=== PATIENT | male | born 1965 | race African-American/Black ===

== ENCOUNTER 2016-12-25 18:31 | Emergency (ER) | payer MEDICAID, OTHER ==
[~2016-12-25] VITALS: Ht 165.1 cm; Wt 67.1 kg
[2016-12-25 19:04] VITALS: BP 138/100
--- NOTE | 2016-12-25 19:20 | Emergency Room Report ---
History of Present Illness General Chief Complaint: Vomiting Source: Patient, Caregiver Present Illness HPI Patient is a 51-year-old male brought in by caregiver for increased vomiting. Patient had gradual onset of symptoms. Patient reportedly had one or 2 episodes of diarrhea. Patient had prior history of psychiatric disease and was on Depakote. The patient is normally ambulatory. Patient had decreased feeding as well as decreased food intake. Allergies: Coded Allergies: No Known Allergies (Unverified , 12/25/16) Patient History Past Medical History: see triage record Past Surgical History: unable to obtain Reviewed Nursing Documentation: PMH: Agreed, PSxH: Agreed Nursing Documentation-PMH Past Medical History: No History, Except For History Of Psychiatric Problem: Yes Review of Systems All Other Systems: negative except mentioned in HPI Physical Exam Vital Signs Date Time Temp Pulse Resp B/P Pulse Ox O2 Delivery O2 Flow Rate FiO2 12/25/16 18:51 98.2 112 18 138/100 Sp02 EP Interpretation: reviewed, normal General Appearance: alert, mild distress Head: atraumatic ENT: normal ENT inspection, hearing grossly normal, other - dry mucous membranes Neck: normal inspection, full range of motion, supple, no bony tend Respiratory: normal inspection, lungs clear, normal breath sounds, no respiratory distress, no retraction, no wheezing Cardiovascular #1: regular rate, rhythm, no edema Gastrointestinal: normal inspection, normal bowel sounds, non tender, soft, no guarding, no hernia Genitourinary: no CVA tenderness Musculoskeletal: normal inspection, back normal, normal range of motion Neurologic: responsive, motor weakness - generalized Psychiatric: normal inspection, judgement/insight normal, mood/affect normal Skin: normal inspection, normal color, no rash Medical Decision Making Diagnostic Impression: Primary Impression: Dehydration Additional Impressions: Valproic acid toxicity Vomiting ER Course Patient presented for abdominal pain. Differential diagnoses included ischemic bowel, appendicitis, perforated viscus, abdominal aortic aneurysm, inferior myocardial infarction, viral gastroenteritis Because of complexity of patient's case laboratory testing and imaging studies were ordered. Patient was started on IV fluids. Patient was given IV antiemetics.Patient was noted to have CT imaging without evident bowel obstruction or evidence of appendicitis. Laboratory testing showed elevated white blood count. Depakote level is also noted be elevated. Patient was discussed with Dr. Ray agreed to accept the patient in transfer Laboratory Tests Test 12/25/16 19:18 12/25/16 20:30 White Blood Count 12.3 K/UL (4.8-10.8) H Red Blood Count 4.44 M/UL (4.70-6.10) L Hemoglobin 11.7 G/DL (14.2-18.0) L Hematocrit 36.6 % (42.0-52.0) L Mean Corpuscular Volume 82 FL (80-99) Mean Corpuscular Hemoglobin 26.3 PG (27.0-31.0) L Mean Corpuscular Hemoglobin Concent 31.9 G/DL (32.0-36.0) L Red Cell Distribution Width 14.5 % (11.6-14.8) Platelet Count 166 K/UL (150-450) Mean Platelet Volume 8.4 FL (6.5-10.1) Neutrophils (%) (Auto) 76.0 % (45.0-75.0) H Lymphocytes (%) (Auto) 11.0 % (20.0-45.0) L Monocytes (%) (Auto) 12.0 % (1.0-10.0) H Eosinophils (%) (Auto) 0.0 % (0.0-3.0) Basophils (%) (Auto) 1.0 % (0.0-2.0) Sodium Level 133 mEQ/L (135-145) L Potassium Level 4.0 mEQ/L (3.4-4.9) Chloride Level 90 mEQ/L (98-107) L Carbon Dioxide Level 23 mEQ/L (20-30) Anion Gap 20 (5-15) H Blood Urea Nitrogen 20 mg/dL (7-23) Creatinine 0.9 mg/dL (0.7-1.2) Estimate Glomerular Filtration Rate > 60 mL/min (>60) Glucose Level 120 mg/dL (74-106) H Calcium Level 9.4 mg/dL (8.6-10.2) Total Bilirubin 0.3 mg/dL (0.0-1.2) Aspartate Amino Transferase (AST) 20 U/L (5-40) Alanine Aminotransferase (ALT) 11 U/L (3-41) Alkaline Phosphatase 67 U/L (40-129) Troponin I < 0.30 ng/mL (<=0.30) Total Protein 8.4 g/dL (6.6-8.7) Albumin 4.3 g/dL (3.5-5.2) Globulin 4.1 g/dL Albumin/Globulin Ratio 1.0 (1.0-2.7) Lipase 14 U/L (< 60) Valproic Acid Level 131 ug/mL (50-100) *H Urine Color Pale yellow Urine Appearance Slightly cloudy Urine pH 6 (4.5-8.0) Urine Specific [place] 1.020 (1.005-1.035) Urine Protein 2+ (NEGATIVE) H Urine Glucose (UA) Negative (NEGATIVE) Urine Ketones Negative (NEGATIVE) Urine Occult Blood 5+ (NEGATIVE) H Urine Nitrite Negative (NEGATIVE) Urine Bilirubin Negative (NEGATIVE) Urine Urobilinogen Normal MG/DL (0.0-1.0) Urine Leukocyte Esterase Negative (NEGATIVE) Urine RBC 60-80 /HPF (0 - 0) H Urine WBC 0 /HPF (0 - 0) Urine Squamous Epithelial Cells None /LPF (NONE/OCC) Urine Bacteria Few /HPF (NONE) Last Vital Signs Date Time Temp Pulse Resp B/P Pulse Ox O2 Delivery O2 Flow Rate FiO2 12/25/16 18:51 98.2 112 18 138/100 Status: unchanged Disposition: XFER SHT-TRM HOSP Condition: Serious Referrals: JENNIFER CHADWICK (PCP) Sheldon Denise Dec 25, 2016 19:20
[2016-12-25 19:50] LABS: ALANINE AMINOTRANSFERASE 11 U/L (3-41); ANION GAP 20 (5-15); ASPARTATE AMINO TRANSFERASE 20 U/L (5-40); CALCIUM 9.4 mg/dL (8.6-10.2); CARBON DIOXIDE 23 mEQ/L (20-30); CHLORIDE 90 mEQ/L (98-107); CREATININE 0.9 mg/dL (0.7-1.2); GLOMERULAR FILTRATION RATE > 60 mL/min (>60); HEMOLYSIS 90; LIPASE 14 U/L (< 60); SODIUM 133 mEQ/L (135-145); TOTAL PROTEIN 8.4 g/dL (6.6-8.7); TROPONIN I < 0.30 ng/mL (<=0.30)
[2016-12-25 19:58] LABS: MEAN CORPUSCULAR HEMOGLOBIN 26.3 PG (27.0-31.0); MEAN CORPUSCULAR HGB CONC 31.9 G/DL (32.0-36.0); MEAN CORPUSCULAR VOLUME 82 FL (80-99); MEAN PLATELET VOLUME 8.4 FL (6.5-10.1); PLATELET COUNT 166 K/UL (150-450); RED BLOOD COUNT 4.44 M/UL (4.70-6.10); RED CELL DISTRIBUTION WIDTH 14.5 % (11.6-14.8); WHITE BLOOD COUNT 12.3 K/UL (4.8-10.8)
[2016-12-25 20:07] LABS: VALPROIC ACID 131 ug/mL (50-100)
[2016-12-25 20:50] LABS: KETONES,URINE NEGATIVE (NEGATIVE); LEUKOCYTE ESTERASE ,URINE NEGATIVE (NEGATIVE); NITRITE,URINE NEGATIVE (NEGATIVE); PH,URINE 6 (4.5-8.0); PROTEIN,URINE 2+ (NEGATIVE); UROBILINOGEN,URINE NORMAL MG/DL (0.0-1.0)
[2016-12-25 20:57] LABS: APPEARANCE,URINE SLIGHTLY CLOUDY
[2016-12-25 20:58] LABS: BACTERIA,URINE FEW /HPF; RBC,URINE 60-80 /HPF (0 - 0); WBC,URINE 0 /HPF (0 - 0)
[2016-12-25 21:49] VITALS: BP 148/79
[2016-12-25 23:12] VITALS: BP 145/76
[2016-12-25 23:14] VITALS: BP 145/76
--- NOTE | 2016-12-26 09:22 | Diagnostic Imaging Report ---
Indication: Abdominal pain Technique: Continuous helical transaxial imaging of the abdomen and pelvis was obtained from the lung bases to the pubic symphysis during intravenous contrast administration. Coronal 2-D reformats were also obtained. Study obtained in a Siemens sensation [address] Total Dose length Product (DLP): [address] Dose Index Volume (CTDIvol): 12 mGy Comparison: None Findings: Lung bases are essentially clear. There is a small hiatal hernia. The liver appears slightly hypodense. There is a tiny low-density lesion in the left lobe may be a cyst but too small to characterize adequately. No gross abnormalities of the gallbladder identified. Appendix is not seen but there are no secondary signs of appendicitis appreciated. The kidneys, pancreas, spleen appear unremarkable. No free air, free fluid or evidence of bowel obstruction. Bladder is mostly nondistended. Impression: No acute findings appreciated Hiatal hernia Mild fatty liver Low density liver lesion too small to characterize adequately. This may be a small cyst. The CT scanner at [facility] is accredited by the [employer] and the scans are performed using protocols designed to limit radiation exposure to as low as reasonably achievable to attain images of sufficient resolution adequate for diagnostic evaluation.
== END 2016-12-25 23:14 | disposition short-term general hospital (02) ==
LOC: EMR 19:13
DX: R11.10 Vomiting, unspecified (principal); E86.0 Dehydration; T42.6X5A Adverse effect of other antiepileptic and sedative-hypnotic drugs, initial encounter; Y92.9 Unspecified place or not applicable; Y99.8 Other external cause status
CPT/HCPCS: 36415; 74177; 80053; 80164; 81003; 83690; 84484; 85025; 96374; 96375; 99285; J0360; J2405; Q9967